=== PATIENT | male | born 2005 | race Caucasian/White ===

== ENCOUNTER 2025-02-02 10:45 | Emergency (ER) | payer MEDICAID ==
[~2025-02-02] VITALS: Ht 180.3 cm; Wt 65.3 kg
[2025-02-02 10:50] VITALS: TEMP 36.8; O2SAT 100
[2025-02-02 13:57] LABS: CLARITY URINE CLEAR (CLEAR); COLOR URINE YELLOW (YELLOW); GLUCOSE URINE NEGATIVE (NEGATIVE); KETONES URINE NEGATIVE (NEGATIVE); LEUKOCYTE ESTERASE URINE NEGATIVE (NEGATIVE); NITRITE URINE NEGATIVE (NEGATIVE); OCCULT BLOOD URINE NEGATIVE (NEGATIVE); PH URINE 5.5 (4.5-8.0); PROTEIN URINE NEGATIVE (NEGATIVE); SPECIFIC GRAVITY URINE 1.017 (1.005-1.030); UROBILINOGEN URINE 0.2 E.U./dL (0.2-1.0)
[2025-02-02] MEDS ORDERED: IBUP-2029 MT (14:43)
[2025-02-02 15:09] VITALS: BP 108/73; PULSE 65; RESP 18; O2SAT 97
[2025-02-05 04:10] LABS: CHLAMYDIA TRACHOMATIS NAA Negative (Negative); NEISSERIA GONORRHOEAE NAA Negative (Negative)
== END 2025-02-02 15:11 | disposition home or self-care (01) ==
LOC: ER 10:45
DX: N50.3 Cyst of epididymis (principal); I86.1 Scrotal varices
CPT/HCPCS: 76870; 81003; 87491; 87591; 93976; 99284